=== PATIENT | male | born 1970 | race Caucasian/White ===

== ENCOUNTER 2019-06-24 10:09 | Day surgery (SDC) | payer BC ==
[~2019-06-24] VITALS: Ht 190.5 cm; Wt 106.5 kg
[~2019-06-24 10:09] MED LIST: LIDOCAINE 1% MDV 20ML VIAL SQ PRN; LISI-1046 PO; LR 1,000 ML IV ONE; ceFAZolin SOD 2 GM in IV 1 EA IV ONE
[2019-06-24] MEDS ORDERED: LIDOCAINE 2% INJ 100 MG/5 ML SDV (FOR ANES.) As Ordered ONE (12:09)
[2019-06-24] MEDS ORDERED: PROPOFOL 200 MG/20 ML VIAL As Ordered ONE (12:09)
[2019-06-24] MEDS ORDERED: MIDAZOLAM INJ 2 MG/2 ML VIAL (J2250) As Ordered ONE (12:10)
[2019-06-24] MEDS ORDERED: fentaNYL 250 MCG/5 ML INJECTION (J3010) As Ordered ONE (12:10)
[2019-06-24] MEDS ORDERED: ceFAZolin 1GM INJ (J0690 PER 500MG) As Ordered ONE (13:23)
[2019-06-24] MEDS ORDERED: DESFLURANE 240 ML INHALANT As Ordered ONE (14:28)
[2019-06-24] MEDS ORDERED: ONDANSETRON 4MG/2ML VIAL (J2405) As Ordered ONE (14:47)
[2019-06-24] MEDS ORDERED: KETOROLAC 60 MG/2 ML VIAL (J1885) As Ordered ONE (14:47)
[2019-06-24] MEDS ORDERED: dexameTHASONE 4 MG/ML 1ML VIAL (J1100) As Ordered ONE (14:47)
[2019-06-24] MEDS ORDERED: fentaNYL 100 MCG/2 ML INJECTION (J3010) As Ordered ONE (15:47)
[2019-06-24] MEDS: fentaNYL 100 MCG/2 ML INJECTION (J3010) IV PRN ×4 (15:50→16:05)
[2019-06-24] MEDS ORDERED: oxyCODONE 5MG TAB As Ordered ONE (16:00)
[2019-06-24] MEDS ORDERED: LR 1,000 ML IV SCH ×2 (16:15)
[2019-06-24] MEDS ORDERED: ONDANSETRON 4MG/2ML VIAL (J2405) IV PRN (16:15)
[2019-06-24] MEDS ORDERED: oxyCODONE 5MG TAB PO PRN (16:15)
--- NOTE | 2019-06-24 16:19 | REP ---
Right forearm and elbow: 10 views. History: Operative imaging. Distal biceps tear repair. 10 seconds of fluoroscopy time is reported. Findings: A sequence of 10 last image hold fluoroscopically obtained spot radiographs document operative procedure manipulation. Electronically Signed by Zyead Johnson MD 06/24/2019 04:11 P
[2019-06-24 17:50] VITALS: BP 156/83
--- NOTE | 2019-06-24 17:53 | ECGEPIP ---
[facility] Test Date: 2019-06-24 Pat Name: AKASH PATEL Department: Room: - Gender: Male Registry Rn: SANTOS : 1970 Requested By: Michelle Bingham Order Number: [id number] Reading MD: Cleveland Quiles Measurements Intervals [place] Rate: 46 P: 61 KS: 149 QRS: 37 QRSD: 105 T: 15 QT: 413 QTc: 362 Interpretive Statements Sinus bradycardia IVCD Prominent voltages with inferoapical ST/T-wave abnormalities Probable LVH. No prior tracing for comparison. Clincal correlation advised Electronically Signed on 06-24-2019 17:53:10 EST by Cleveland Quiles
--- NOTE | 2019-06-30 08:48 | RO ---
DATE OF PROCEDURE: 06/24/2019 PREPROCEDURE DIAGNOSIS: Acute distal biceps rupture right elbow. POSTPROCEDURE DIAGNOSIS: Acute distal biceps rupture right elbow. PROCEDURE: Right distal biceps repair using Arthrex biceps button technique. SURGEON: Dr. Michelle aVnegas REFRIGERATED CARGO CLERK: Mr. Jeff Mayer ANESTHESIA: General laryngeal mask anesthetic. COMPLICATIONS: None. ESTIMATED BLOOD LOSS: Less than 20 mL. DESCRIPTION OF PROCEDURE: Antibiotics were given intravenously preoperatively. He was taken to the operating room where a successful general laryngeal mask anesthetic was established. Tourniquet placed on the right upper arm and not inflated. Fluoroscopic imaging was used to dominick directly over the radial tuberosity. His right upper extremity was then carefully prepped and draped in the usual sterile fashion, elevated and after an appropriate time out the tourniquet was inflated. A longitudinal incision was made over the previously marked area. Very superficial dissection carefully was performed and the Bovie cautery was used to coagulate small crossing veins. We penetrated the deep fascia and found the lacertus fibrosus and then dissected down through that plane and identified the ruptured biceps tendon. That was brought out into the wound and then over a sterile blue towel I debrided the end and then placed the fiber loop through the tendon. We then carefully dissected down underneath the lacertus following the plane in the zone of injury to the radial tuberosity. The radial tuberosity was cleared of soft tissue with a [place] elevator and then the guide pin was placed into the radial tuberosity with maximal supination. Fluoroscopic image at this point confirmed we were right into the radial tuberosity, thus at this point I penetrated the far cortex and then used the 8 mm reamer to ream just the near cortex. We copiously irrigated and then loaded the biceps button on the ends of the sutures and then passed it through the far hole and then pulled the tendon down into the tunnel without difficulty. Once it was tensioned appropriately, I tied the sutures with several interrupted half hitches. Fluoroscopic imaging confirmed the button was in appropriate position. There was some soft tissue distance between the button and the far cortex of the radius. We then used one suture limb to pass through the 8 mm Bio-Tenodesis screw that was loaded on to the screwdriver and then was passed over the suture and with excellent purchase into the tunnel displacing the tendon a bit ulnarly. We then over tied the two ends of the suture as a secondary back up to hold the screw in position. I then copiously irrigated out the wound and closed the deep subdermal tissues with a single #3-0 PDS and then a #4-0 Monocryl was used for the subcuticular skin closure and covered by Mastisol and Steri-Strips. The tourniquet was released. Dry sterile bulky dressing applied and placed into a sling. Then awakened from general laryngeal mask anesthetic. He did wake up fairly violently however and hyperflexed both elbows during the wake up procedure. He was then transferred to the recovery room in stable condition. There were no intraoperative complications. Mr. Mayer was critical to the success of this difficult surgery by helping with appropriate soft tissue retraction, helped to control the arm and soft tissues so I could perform the operation smoothly, efficiently and safely.
== END 2019-06-24 18:05 | disposition home or self-care (01) ==
LOC: M SDC 10:09
PROVIDERS: ATTEND Orthopaedic Surgery
DX: S46.211A Strain of muscle, fascia and tendon of other parts of biceps, right arm, initial encounter (principal); X58.XXXA Exposure to other specified factors, initial encounter; Y92.89 Other specified places as the place of occurrence of the external cause; Y93.9 Activity, unspecified; Y99.9 Unspecified external cause status; I10 Essential (primary) hypertension; Z79.899 Other long term (current) drug therapy; G47.30 Sleep apnea, unspecified
CPT/HCPCS: 24342; 76000; 93005; C1713; J0690; J1100; J1885; J2250; J2405; J3010

== ENCOUNTER → 2020-10-28 | Outpatient (CLI) | payer BC ==
[~2020-10-28] MED LIST changes: -LIDOCAINE 1% MDV 20ML VIAL SQ PRN; -LISI-1046 PO; +LISI2.5T2 PO; -LR 1,000 ML IV ONE; -ceFAZolin SOD 2 GM in IV 1 EA IV ONE
== END ==
LOC: M LABSMTC 10:47
PROVIDERS: ATTEND Anesthesiology
DX: Z01.818 Encounter for other preprocedural examination (principal); Z11.52 Encounter for screening for COVID-19

== ENCOUNTER 2020-11-02 09:46 | Day surgery (SDC) | payer BC ==
[~2020-11-02] VITALS: Ht 190.5 cm; Wt 111.1 kg
[~2020-11-02 09:46] MED LIST changes: +CLAR10CA3 PO; +LOSA25TA14 PO; +NS 1,000 ML IV ONE; +OMEP-221 PO
[2020-11-02] MEDS ORDERED: LIDOCAINE 2% 100MG/5ML SDV (FOR ANES.) As Ordered ONE (10:16)
[2020-11-02] MEDS ORDERED: propofoL 200 MG/20 ML VIAL As Ordered ONE (10:16)
--- NOTE | 2020-11-02 10:46 | ROOR ---
Patient Name: Rik Dominguez Procedure Date: 11/02/2020 10:23 AM Date of : 1970 Age: 50 Room: [facility] Gender: Male Note Status: Finalized Procedure: Total Colonoscopy to Cecum + Cold Snare Polypectomy + ileoscopy Indications: Screening for colorectal malignant neoplasm Providers: Nader Rosen MD Referring MD: Manpreet Malave MD Requesting Provider: Medicines: Monitored Anesthesia Care Complications: No immediate complications. Procedure: Pre-Anesthesia Assessment: - The heart rate, respiratory rate, oxygen saturations, blood pressure, adequacy of pulmonary ventilation, and response to care were monitored throughout the procedure. The Colonoscope was introduced through the anus and advanced to the terminal ileum, with identification of the appendiceal orifice and IC valve. The colonoscopy was performed without difficulty. The patient tolerated the procedure well. The quality of the bowel preparation was excellent. Findings: The perianal and digital rectal examinations were normal. Non-bleeding internal hemorrhoids were found during retroflexion. The hemorrhoids were small and Grade I (internal hemorrhoids that do not prolapse). Multiple small and large-mouthed diverticula were found in the recto-sigmoid colon, sigmoid colon and descending colon. A small polyp was found at 15 cm proximal to the anus. The polyp was sessile. The polyp was removed with a cold snare. Resection and retrieval were complete. The exam was otherwise without abnormality on direct and retroflexion views. The terminal ileum appeared normal. Impression: - Non-bleeding internal hemorrhoids. - Diverticulosis in the recto-sigmoid colon, in the sigmoid colon and in the descending colon. - One small polyp at 15 cm proximal to the anus, removed with a cold snare. Resected and retrieved. - The examination was otherwise normal on direct and retroflexion views. - The examined portion of the ileum was normal. - The exam was otherwise normal to the cecum. Recommendation: - Patient has a contact number available for emergencies. The signs and symptoms of potential delayed complications were discussed with the patient. Return to normal activities tomorrow. Written discharge instructions were provided to the patient. - High fiber diet. - Discharge patient to home. - Continue present medications. - Await pathology results. - Telephone GI clinic for pathology results in 1 week. - Repeat colonoscopy in 10 years for screening purposes. - Return to referring physician. - The findings and recommendations were discussed with the patient. Procedure Code(s): --- Professional --- 62776, Colonoscopy, flexible; with removal of tumor(s), polyp(s), or other lesion(s) by snare technique Diagnosis Code(s): --- Professional --- Z12.11, Encounter for screening for malignant neoplasm of colon K64.0, First degree hemorrhoids K63.5, Polyp of colon K57.30, Diverticulosis of large intestine without perforation or abscess without bleeding CPT copyright 2019 [employer]. All rights reserved. The codes documented in this report are preliminary and upon chipper review may be revised to meet current compliance requirements. Nader Rosen MD Nader Rosen MD 11/02/2020 10:46:35 AM Electronically signed by Nader Rosen MD Number of Addenda: 0 Note Initiated On: 11/02/2020 10:23 AM Estimated Blood Loss: Estimated blood loss: none.
[2020-11-02 11:03] VITALS: BP 124/71
== END 2020-11-02 11:03 | disposition home or self-care (01) ==
LOC: M OPP 09:46
PROVIDERS: ATTEND Internal Medicine Gastroenterology
DX: Z12.11 Encounter for screening for malignant neoplasm of colon (principal); K63.5 Polyp of colon; K57.30 Diverticulosis of large intestine without perforation or abscess without bleeding; K64.0 First degree hemorrhoids; K21.9 Gastro-esophageal reflux disease without esophagitis; I10 Essential (primary) hypertension; Z79.899 Other long term (current) drug therapy

== ENCOUNTER → 2022-09-02 | Outpatient (CLI) | payer BC ==
[~2022-09-02] MED LIST changes: -LISI2.5T2 PO; +LISI2.5T9 PO; +LOSA25TA13 PO; -LOSA25TA14 PO; -NS 1,000 ML IV ONE; -OMEP-221 PO; +OMEP40CA5 PO
== END ==
LOC: M WUC 11:22
PROVIDERS: ATTEND Family Medicine
DX: M54.9 Dorsalgia, unspecified (principal)